=== PATIENT | male | born 1995 | race Caucasian/White ===

== ENCOUNTER 2018-12-03 15:23 | Emergency (ER) | payer SELFPAY ==
[~2018-12-03] VITALS: Ht 160 cm; Wt 60.0 kg
[2018-12-03 15:27] VITALS: Ht 160 cm; Wt 60.0 kg
[2018-12-03] MEDS ORDERED: SOD CHLORIDE 0.9% 1,000 ML IV STA (15:40)
[2018-12-03] MEDS ORDERED: ONDANSETRON 4 MG INJ IV STA (15:40)
[2018-12-03 17:23] VITALS: BP 100/78; PULSE 99; RESP 14
--- NOTE | 2018-12-03 18:16 | ERD ---
ER Documentation Chief Complaint Chief Complaint took a pill then sudden became unresponsive. Narcan given now AOX4 HPI This is a 23-year-old man brought in by EMS for opioid intoxication, he took an "unknown" pill and then developed mental status depression. Friends called 911 and upon naloxone administration patient's mental status improved and he was transported here. Patient had no seizure activity, no diarrhea, no complaints of chest pain or shortness of breath. Patient is asymptomatic in the ER. ROS All systems reviewed and are negative except as per history of present illness. Medications Home Meds Unable to Obtain Active Prescriptions or Reported Meds Allergies Allergies: Coded Allergies: Unable to Assess (Verified Allergy, Severe, 12/03/18) PMhx/Soc History of drug abuse Medical and Surgical Hx: pt denies Medical Hx, pt denies Surgical Hx Hx Alcohol Use: No Hx Substance Use: No Hx Tobacco Use: No Smoking Status: Never smoker Physical Exam Vitals Vital Signs Date Temp Pulse Resp B/P (MAP) Pulse Ox O2 O2 Flow FiO2 Time Delivery Rate 12/03/18 99.0 99 14 100/78 100 Room Air 17:23 (85) 12/03/18 98.1 100 18 120/80 100 15:27 (93) Physical Exam Const: No acute distress, afebrile Head: Atraumatic Eyes: Normal Conjunctiva ENT: Normal External Ears, Nose and Mouth. Neck: Full range of motion. No meningismus. Resp: Clear to auscultation bilaterally Cardio: Regular rate and rhythm, no murmurs Abd: Soft, non tender, non distended. Skin: No petechiae or rashes Back: No midline or flank tenderness Ext: No cyanosis, or edema Neur: Awake and alert x3, no focal deficits or facial asymmetry, pupils constricted bilaterally consistent with opioid intoxication. Patient is answering questions and following commands Psych: Normal Mood and Affect Result Diagram: 12/03/18 1548 12/03/18 1548 Results 24 hrs Laboratory Tests Test 12/03/18 15:48 White Blood Count 9.6 10^3/ul Red Blood Count 4.37 10^6/ul Hemoglobin 13.3 g/dl Hematocrit 39.2 % Mean Corpuscular Volume 89.7 fl Mean Corpuscular Hemoglobin 30.4 pg Mean Corpuscular Hemoglobin Concent 33.9 g/dl Red Cell Distribution Width 12.7 % Platelet Count 267 10^3/UL Mean Platelet Volume 10.0 fl Immature Granulocytes % 0.300 % Neutrophils % 59.7 % Lymphocytes % 28.3 % Monocytes % 8.9 % Eosinophils % 2.3 % Basophils % 0.5 % Nucleated Red Blood Cells % 0.0 /100WBC Immature Granulocytes # 0.030 10^3/ul Neutrophils # 5.7 10^3/ul Lymphocytes # 2.7 10^3/ul Monocytes # 0.9 10^3/ul Eosinophils # 0.2 10^3/ul Basophils # 0.1 10^3/ul Nucleated Red Blood Cells # 0.0 10^3/ul Sodium Level 137 mmol/L Potassium Level 3.5 mmol/L Chloride Level 97 mmol/L Carbon Dioxide Level 25 mmol/L Anion Gap 15 Blood Urea Nitrogen 18 mg/dl Creatinine 1.01 mg/dl Est Glomerular Filtrat Rate mL/min > 60 mL/min Glucose Level 94 mg/dl Calcium Level 9.2 mg/dl Total Bilirubin 0.1 mg/dl Direct Bilirubin 0.00 mg/dl Indirect Bilirubin 0.1 mg/dl Aspartate Amino Transf (AST/SGOT) 24 IU/L Alanine Aminotransferase (ALT/SGPT) 21 IU/L Alkaline Phosphatase 77 IU/L Total Protein 7.1 g/dl Albumin 4.2 g/dl Globulin 2.90 g/dl Albumin/Globulin Ratio 1.44 Lipase 53 U/L Current Medications Medications Dose Sig/[place] Start Time Status Last (Trade) Ordered Route PRN Stop Time Admin Dose Reason Admin Sodium 1,000 ml @ Q1H STAT 12/03/18 DC 12/03/18 Chloride 1,000 mls/hr IV 15:40 15:49 12/03/18 16:39 Ondansetron 4 mg ONCE STAT 12/03/18 DC 12/03/18 HCl (Zofran IV 15:40 15:49 Inj) 12/03/18 15:41 Procedures/MDM CBC and electrolytes were normal, liver function tests were normal IV line was established patient was placed on mammography tech rhythm strip revealed a sinus rhythm at about 80 bpm with upright P and T waves. Patient was afebrile Patient did have one episode of vomiting post Narcan therapy so I administered 1 L normal saline IV and Zofran 4 mg IV x1. CBC and electrolytes were normal, liver function tests were normal Differential diagnoses considered, included but not limited to acute coronary syndrome, pulmonary embolism, aortic dissection, abdominal aortic aneurysm, sepsis, stroke, meningitis, encephalitis, pneumonia, appendicitis, cholecystitis, bowel obstruction, pyelonephritis, nephrolithiasis, cystitis, as well as metabolic, hematologic, and electrolyte abnormalities. As well as abscess, cellulitis, fractures, and dislocations. Patient feels much better at this time, and vital signs are normal, symptoms have improved. I did give strict instructions to return to the ED if symptoms continue or worsen, patient will otherwise follow-up with primary care physician. Patient understood instructions and agreed to plan. Disclaimer: Inadvertent spelling and grammatical errors are likely due to EHR/dictation software use and do not reflect on the overall quality of patient care. Also, please note that the electronic time recorded on this note does not necessarily reflect the actual time of the patient encounter. Departure Diagnosis: Primary Impression: Opioid overdose Encounter type: initial encounter Injury intent: accidental or unintentional Qualified Codes: T40.2X1A - Poisoning by other opioids, accidental (unintentional), initial encounter Condition: Good Patient Instructions: Drug Abuse BRUCE BRYANT MD Dec 03, 2018 18:16
== END 2018-12-03 17:23 | disposition home or self-care (01) ==
LOC: E/R 15:23
DX: T40.2X1A Poisoning by other opioids, accidental (unintentional), initial encounter (principal); R40.2142 Coma scale, eyes open, spontaneous, at arrival to emergency department; R40.2362 Coma scale, best motor response, obeys commands, at arrival to emergency department; R40.2242 Coma scale, best verbal response, confused conversation, at arrival to emergency department
CPT/HCPCS: 36415; 80053; 83690; 85025; 96374; 99284; J2405; J7030